=== PATIENT | female | born 1955 | race African-American/Black ===

== ENCOUNTER 2018-07-01 14:09 | Outpatient (CLI) | payer MEDICAID ==
[~2018-07-01 14:09] MED LIST: CODE118S4 PO; TRAM-47 PO; TRAM50TA2 PO; atorvastatin
== END 2018-07-01 23:59 | disposition home or self-care (01) ==
LOC: CFH 14:09
PROVIDERS: ATTEND Internal Medicine
DX: N63.21 Unspecified lump in the left breast, upper outer quadrant (principal)
CPT/HCPCS: 76641; 77066; G0279

== ENCOUNTER 2018-09-29 10:46 | Emergency (ER) | payer MEDICAID ==
[~2018-09-29] VITALS: Ht 162.6 cm; Wt 89.2 kg
[2018-09-29 10:52] VITALS: BP 160/80
[2018-09-29] MEDS ORDERED: ATOR-2 PO (11:07)
[2018-09-29] MEDS ORDERED: ASPI-496 PO (11:07)
[2018-09-29] MEDS ORDERED: DIPH,PERTUSS(ACELL),TET VAC/PF 0.5 ML IM-VACC ONE ×2 (11:20→11:30)
== END 2018-09-29 12:34 | disposition home or self-care (01) ==
LOC: ED 12:19
DX: S21.031A Puncture wound without foreign body of right breast, initial encounter (principal); N61.0 Mastitis without abscess; S50.811A Abrasion of right forearm, initial encounter; I10 Essential (primary) hypertension; Z88.6 Allergy status to analgesic agent; Z88.0 Allergy status to penicillin; W18.39XA Other fall on same level, initial encounter; Y93.89 Activity, other specified; Y92.009 Unspecified place in unspecified non-institutional (private) residence as the place of occurrence of the external cause; Y99.8 Other external cause status
CPT/HCPCS: 76642; 99284